=== PATIENT | female | born 1990 | race Caucasian/White ===

== ENCOUNTER 2017-05-31 18:32 | Emergency (ER) | payer BC ==
[2017-05-31 18:49] VITALS: BP 138/86
[2017-05-31] MEDS ORDERED: Ketorolac 60 MG/2 ML SDV IM ONE (19:05)
[2017-05-31] MEDS ORDERED: Acetaminophen/HYDROcodone 325-10 MG Tab PO PRN (19:05)
--- NOTE | 2017-05-31 19:05 | EDM.PDOC ---
ED HPI GENERAL MEDICAL PROBLEM - General Chief Complaint: Genitourinary Problem Stated Complaint: UTI Time Seen by Provider: 05/31/17 18:50 Source of Information: Reports: Patient History Limitations: Reports: No Limitations - History of Present Illness INITIAL COMMENTS - FREE TEXT/NARRATIVE: 26 YO WF presents to ER complaining of 4 hours of dysuria with lower abdominal and associated urinary frequency and urgency. Pt reports past history of UTI's and states these symptoms are similar. Pt denies any fever/chills or vomiting but states she does feel nauseated. Onset: Today Duration: Day(s): (1) Location: Reports: Abdomen Quality: Reports: Pressure Severity: Mild Improves with: Reports: None Worsens with: Reports: None Associated Symptoms: Reports: No Other Symptoms Treatments DIRECTOR OF STRATEGY & MOBILE: Reports: Other Medication(s) Bladder Pain Score (Numeric/FACES): 8 - Related Data Allergies Allergy/AdvReac Type Severity Reaction Status Date / Time phenazopyridine Allergy Other Verified 05/31/17 18:51 [From Pyridium] Sulfa (Sulfonamide Allergy Cannot Verified 03/22/15 20:21 MDT Antibiotics) Remember Home Meds: Home Meds Cephalexin [Keflex] 500 mg PO Q6HR #40 cap 05/31/17 [Rx] diphenhydrAMINE HCl [Benadryl] 25 mg PO TID PRN 05/31/17 [History] Past Medical History Other Respiratory History: seasonal alleriges Social & Family History - Tobacco Use Smoking Status *Q: Never Smoker ED ROS GENERAL - Review of Systems Review Of Systems: See Below Constitutional: Reports: No Symptoms HEENT: Reports: No Symptoms Respiratory: Reports: No Symptoms Cardiovascular: Reports: No Symptoms Endocrine: Reports: No Symptoms GI/Abdominal: Reports: Nausea : Reports: Dysuria, Frequency, Pain, Urgency Musculoskeletal: Reports: No Symptoms Skin: Reports: No Symptoms Neurological: Reports: No Symptoms Psychiatric: Reports: No Symptoms Hematologic/Lymphatic: Reports: No Symptoms Immunologic: Reports: No Symptoms ED EXAM, RENAL/ - Physical Exam Exam: See Below Exam Limited By: No Limitations General Appearance: Alert, WD/WN, No Apparent Distress Neck: Normal Inspection, Supple, Non-Tender, Full Range of Motion Respiratory/Chest: No Respiratory Distress, Lungs Clear, Normal Breath Sounds, No Accessory Muscle Use, Chest Non-Tender Cardiovascular: Normal Peripheral Pulses, Regular Rate, Rhythm, No Edema, No Gallop, No JVD, No Murmur, No Rub GI/Abdominal: Normal Bowel Sounds, Soft, Non-Tender, No Organomegaly, No Distention, No Abnormal Bruit, No Mass Back Exam: Normal Inspection, Full Range of Motion, NT Extremities: Normal Inspection, Normal Range of Motion, Non-Tender, Normal Capillary Refill, No Pedal Edema Neurological: Alert, Oriented, CN II-XII Intact, Normal Cognition, Normal Gait, Normal Reflexes, No Motor/Sensory Deficits Psychiatric: Normal Affect, Normal Mood Skin Exam: Warm, Dry, Intact, Normal Color, No Rash Lymphatic: No Adenopathy Course - Vital Signs Last Recorded V/S: Last Vital Signs Temp 36.1 C 05/31/17 18:47 Pulse 118 H 05/31/17 18:47 Resp 20 05/31/17 18:47 BP 138/86 05/31/17 18:47 Pulse Ox 98 05/31/17 18:47 - Orders/Labs/Meds Orders: Active Orders 24 hr Category Date Time Status Acetaminophen/HYDROcodone [[place] 325-10 MG] Med 05/31/17 19:05 Ordered 1 tab PO Q6H PRN Cephalexin [Keflex] Med 05/31/17 19:15 Ordered 500 mg PO Q6HR Ondansetron [Zofran ODT] Med 05/31/17 19:09 Ordered 4 mg PO Q6H PRN Medication Orders Hydrocodone Bitart/Acetaminophen ([place] 325-10 Mg) 1 tab PO Q6H PRN PRN Reason: Pain Cephalexin (Keflex) 500 mg PO Q6HR PERCY Stop: 06/01/17 11:01 Labs: Laboratory Tests 05/31/17 05/31/17 Range/Units 18:35 18:35 Specimen Type Urincc Urine Color Yellow (YELLOW) Urine Appearance Slightly cloudy H (CLEAR) Urine pH 7.0 (5.0-9.0) Ur Specific [place] 1.010 (1.005-1.030) Urine Protein Negative (NEGATIVE) mg/dL Urine Glucose (UA) Negative (NEGATIVE) mg/dL Urine Ketones Negative (NEGATIVE) mg/dL Urine Occult Blood Large H (NEGATIVE) Urine Nitrite Positive H (NEGATIVE) Urine Bilirubin Negative (NEGATIVE) Urine Urobilinogen 0.2 (0.2-1.0) E.U./dL Ur Leukocyte Esterase Moderate H (NEGATIVE) Urine RBC 20-30 H /HPF Urine WBC >100 H /HPF Ur Epithelial Cells Few /LPF Urine Bacteria Moderate H (NONE TO FEW) /HPF Urine HCG, Qual Negative (NEGATIVE) Meds: Medications Generic Name Dose Route Start Last Admin Trade Name Freq PRN Reason Stop Dose Admin Hydrocodone Bitart/Acetaminophen 1 tab 05/31/17 19:05 [place] 325-10 Mg PO Q6H PRN Pain Cephalexin 500 mg 05/31/17 19:15 Keflex PO 06/01/17 11:01 Q6HR PERCY Discontinued Medications Generic Name Dose Route Start Last Admin Trade Name Freq PRN Reason Stop Dose Admin Ketorolac Tromethamine 60 mg 05/31/17 19:05 Toradol IM 05/31/17 19:06 ONETIME ONE Departure - Departure Time of Disposition: 19:16 Disposition: Home, Self-Care 01 Condition: Good Clinical Impression: UTI, Urinary tract infectious disease - Discharge Information Prescriptions: Cephalexin [Keflex] 500 mg PO Q6HR #40 cap Instructions: Urinary Tract Infection, Adult, [id number] Referrals: Dina Nassar, STE[employer] POWER SUPERINTENDENT [Primary Care Provider] - Forms: ED Department Discharge - My Orders Last 24 Hours: My Active Orders 05/31/17 19:05 Acetaminophen/HYDROcodone [[place] 325-10 MG] 1 tab PO Q6H PRN 05/31/17 19:09 Ondansetron [Zofran ODT] 4 mg PO Q6H PRN 05/31/17 19:15 Cephalexin [Keflex] 500 mg PO Q6HR - Assessment/Plan Last 24 Hours: My Active Orders 05/31/17 19:05 Acetaminophen/HYDROcodone [[place] 325-10 MG] 1 tab PO Q6H PRN 05/31/17 19:09 Ondansetron [Zofran ODT] 4 mg PO Q6H PRN 05/31/17 19:15 Cephalexin [Keflex] 500 mg PO Q6HR Assessment:: 1. UTI Plan: 1. discharge home 2. keflex 500mg PO Q6 x 10 days 3. hydrocodone 10/325 PO Q6 4. zofran 4mg ODT Q6 PRN 5. follow up with PCP for further evaluation and treatment
[2017-05-31] MEDS ORDERED: Ondansetron 4 MG Tab.DIS PO PRN (19:09)
[2017-05-31] MEDS ORDERED: Cephalexin 250 MG Cap PO SCH (19:15)
== END 2017-05-31 19:30 | disposition home or self-care (01) ==
LOC: KA.ED 18:32
DX: N39.0 Urinary tract infection, site not specified (principal); Z88.2 Allergy status to sulfonamides
CPT/HCPCS: 81001; 81025; 87086; 96372; 99283; A9270; J1885; 87088; 87186

== ENCOUNTER 2019-04-18 03:02 | Emergency (ER) | payer BC ==
[2019-04-18] MEDS ORDERED: Sodium Chloride 0.9% 10 ML Syringe FLUSH PRN (03:32)
--- NOTE | 2019-04-18 03:44 | EDM.PDOC ---
ED HPI GENERAL MEDICAL PROBLEM - General Chief Complaint: General Stated Complaint: UTI symptoms Time Seen by Provider: 04/18/19 03:20 Source of Information: Reports: Patient History Limitations: Reports: No Limitations - History of Present Illness INITIAL COMMENTS - FREE TEXT/NARRATIVE: 28 YO WF IUP @27 weeks who presents to ER with 2 day history of urinary frequency and urgency. Pt was seen in clinic yesterday and had a urinalysis done which showed borderline UTI which was not treated. Culture was ordered and is pending at this time. Pt woke this am with lower abdominal pain, dysuria and frequency and became very uncomfortable prompting ER evaluation. Pt states she took azo and an oxycodone which she had at home which has improved her symptoms. Pt denies fever/chills, no nausea/vomiting, no severe back pain. Pt appears in NAD at this time. Onset Date: 04/17/19 Duration: Day(s): (2) Location: Reports: Abdomen Quality: Reports: Burning Severity: Mild Improves with: Reports: None Worsens with: Reports: Other (urination) Associated Symptoms: Denies: Fever/Chills, Nausea/Vomiting Treatments DINING ROOM BUSSER: Reports: Acetaminophen, Other (see below) (azo/oxycodone) Groin Pain Score (Numeric/FACES): 7 - Related Data Allergies Allergy/AdvReac Type Severity Reaction Status Date / Time phenazopyridine Allergy Other Verified 05/31/17 23:54 [From Pyridium] Sulfa (Sulfonamide Allergy Cannot Verified 05/31/17 23:54 Antibiotics) Remember Home Meds: Home Meds Cephalexin [Keflex] 500 mg PO Q6HR #40 cap 05/31/17 [Rx] diphenhydrAMINE HCl [Benadryl] 25 mg PO TID PRN 05/31/17 [History] Cephalexin [Keflex] 500 mg PO Q6HR #28 capsule 04/18/19 [Rx] Ondansetron [Zofran ODT] 4 mg PO Q6H PRN #6 tab.dis 04/18/19 [Rx] Past Medical History - Past Health History Medical/Surgical History: Denies Medical/Surgical History Other Respiratory History: seasonal alleriges RESIDENT PROGRAMS ASSISTANT History: Reports: Other RESIDENT PROGRAMS ASSISTANT History: G-2 P-2 ED ROS GENERAL - Review of Systems Review Of Systems: See Below Constitutional: Reports: No Symptoms HEENT: Reports: No Symptoms Respiratory: Reports: No Symptoms Cardiovascular: Reports: No Symptoms Endocrine: Reports: No Symptoms GI/Abdominal: Reports: No Symptoms : Reports: Dysuria, Frequency, Hematuria, Urgency Musculoskeletal: Reports: No Symptoms Skin: Reports: No Symptoms Neurological: Reports: No Symptoms Psychiatric: Reports: No Symptoms Hematologic/Lymphatic: Reports: No Symptoms Immunologic: Reports: No Symptoms ED EXAM, GENERAL - Physical Exam Exam: See Below Exam Limited By: No Limitations General Appearance: Alert, WD/WN, No Apparent Distress Nose: Normal Inspection, Normal Mucosa, No Blood Throat/Mouth: Normal Inspection, Normal Lips, Normal Teeth, Normal Gums, Normal Oropharynx, Normal Voice, No Airway Compromise Head: Atraumatic, Normocephalic Neck: Normal Inspection, Supple, Non-Tender, Full Range of Motion Respiratory/Chest: No Respiratory Distress, Lungs Clear, Normal Breath Sounds, No Accessory Muscle Use, Chest Non-Tender Cardiovascular: Normal Peripheral Pulses, Regular Rate, Rhythm, No Edema, No Gallop, No JVD, No Murmur, No Rub GI/Abdominal: Normal Bowel Sounds, Soft, No Organomegaly, No Distention, No Abnormal Bruit, No Mass, Pelvis Stable, Tender (suprpubic tenderness) Back Exam: Normal Inspection, Full Range of Motion, NT Extremities: Normal Inspection, Normal Range of Motion, Non-Tender, Normal Capillary Refill, No Pedal Edema Neurological: Alert, Oriented, CN II-XII Intact, Normal Cognition, Normal Gait, Normal Reflexes, No Motor/Sensory Deficits Psychiatric: Normal Affect, Normal Mood Skin Exam: Warm, Dry, Intact, Normal Color, No Rash Lymphatic: No Adenopathy Course - Vital Signs Last Recorded V/S: Last Vital Signs Temp 36.3 C 04/18/19 03:35 Pulse 100 04/18/19 03:35 Resp 22 H 04/18/19 03:35 BP 140/106 H 04/18/19 03:35 Pulse Ox 97 04/18/19 03:35 - Orders/Labs/Meds Orders: Active Orders 24 hr Category Date Time Status Peripheral IV Care [RC] . DIRECTED Care 04/18/19 03:32 Ordered CULTURE URINE [RM] Stat Lab 04/18/19 03:15 Received Acetaminophen/HYDROcodone [[place] 325-5 MG] Med 10/02/19 04:05 Ordered 6 tab PO Q6H PRN Sodium Chloride 0.9% [Saline Flush] Med 04/18/19 03:32 Ordered 10 ml FLUSH Q8HR PRN Peripheral IV Insertion Adult [OM.PC] Routine Oth 04/18/19 03:32 Ordered Medication Orders Hydrocodone Bitart/Acetaminophen ([place] 325-5 Mg) 6 tab PO Q6H PRN PRN Reason: Pain Sodium Chloride (Saline Flush) 10 ml FLUSH Q8HR PRN PRN Reason: keep vein open Last Admin: 04/18/19 03:55 Dose: 10 ml Labs: Laboratory Tests 04/18/19 04/18/19 04/18/19 Range/Units 03:15 03:25 03:25 WBC 12.99 H (5.00-10.00) 10^3/uL RBC 3.85 (3.80-5.50) 10^6/uL Hgb 11.5 L (12.0-16.0) g/dL Hct 32.5 L (37.0-47.0) % MCV 84.4 (82.0-92.0) fL MCH 29.9 (27.0-31.0) pg MCHC 35.4 (32.0-36.0) g/dL RDW 13.1 (11.5-14.5) % Plt Count 212 (150-400) 10^3/uL MPV 10.7 H (7.4-10.4) fL Immature Gran % (Auto) 0.2 (0.0-5.0) % Neut % (Auto) 72.2 H (50.0-70.0) % Lymph % (Auto) 18.4 L (20.0-40.0) % [place] % (Auto) 5.1 (2.0-8.0) % Eos % (Auto) 3.8 H (1.0-3.0) % Baso % (Auto) 0.3 (0.0-1.0) % Immature Gran # (Auto) 0.02 (0.00-0.50) 10^3/uL Neut # (Auto) 9.38 H (2.50-7.00) 10^3/uL Lymph # (Auto) 2.39 (1.00-4.00) 10^3/uL [place] # (Auto) 0.66 (0.10-0.80) 10^3/uL Eos # (Auto) 0.50 H (0.10-0.30) 10^3/uL Baso # (Auto) 0.04 (0.00-0.10) 10^3/uL Sodium 139 (136-145) mmol/L Potassium 3.5 (3.3-5.3) mmol/L Chloride 104 (98-115) mmol/L Carbon Dioxide 21.9 (21.0-32.0) mmol/L Anion Gap 16.6 H (5-15) mmol/L BUN 8 (6-25) mg/dL Creatinine 0.65 (0.51-1.17) mg/dL Est Cr Clr Drug Dosing 121.70 mL/min Estimated GFR (MDRD) > 60 mL/min Glucose 104 H (75 - 99) mg/dL Calcium 8.8 (8.7-10.3) mg/dL Specimen Type . Urine Color [place] H (YELLOW) Urine Appearance Slightly cloudy H (CLEAR) Urine pH 6.0 (5.0-9.0) Ur Specific [place] 1.015 (1.005-1.030) Urine Protein >=300 H (NEGATIVE) mg/dL Urine Glucose (UA) 100 H (NEGATIVE) mg/dL Urine Ketones 15 H (NEGATIVE) mg/dL Urine Occult Blood Large H (NEGATIVE) Urine Nitrite Positive H (NEGATIVE) Urine Bilirubin Small H (NEGATIVE) Urine Urobilinogen 4.0 H (0.2-1.0) E.U./dL Ur Leukocyte Esterase Large H (NEGATIVE) Urine RBC Semi-packed (0-5) /HPF Urine WBC Semi-packed (0-5) /HPF Ur Epithelial Cells Few /LPF Urine Bacteria Many H (NONE TO FEW) /HPF Meds: Medications Generic Name Dose Route Start Last Admin Trade Name Freq PRN Reason Stop Dose Admin Hydrocodone Bitart/Acetaminophen 6 tab 04/18/19 04:05 [place] 325-5 Mg PO Q6H PRN Pain Sodium Chloride 10 ml 04/18/19 03:32 04/18/19 03:55 Saline Flush FLUSH 10 ml Q8HR PRN Administration keep vein open Discontinued Medications Generic Name Dose Route Start Last Admin Trade Name Freq PRN Reason Stop Dose Admin Ceftriaxone Sodium 1 gm 04/18/19 04:03 Rocephin IVPUSH 04/18/19 04:04 ONETIME ONE Ondansetron HCl 4 mg 04/18/19 03:56 04/18/19 04:02 Zofran IVPUSH 04/18/19 03:57 4 mg ONETIME ONE Administration Departure - Departure Time of Disposition: 04:13 Disposition: Home, Self-Care 01 Condition: Good Clinical Impression: UTI (urinary tract infection) during Qualifiers: Trimester: third trimester Qualified Code(s): O23.43 - Unspecified infection of urinary tract in , third trimester - Discharge Information Prescriptions: Cephalexin [Keflex] 500 mg PO Q6HR #28 capsule Ondansetron [Zofran ODT] 4 mg PO Q6H PRN #6 tab.dis PRN Reason: Vomiting Instructions: and Urinary Tract Infection Referrals: Isabel Nassar STEAM TURBINE ASSEMBLER [Nurse Practitioner] - Forms: ED Department Discharge Additional Instructions: 1. discharge home 2. Rocephin 1g IV given in ER 3. start Keflex 500mg oral 4 times per day x 7 days- start 04/19/2019 4. hydrocodone 5/325 #6 take 1 every 6 hours as needed for pain 5. follow up with PCP in 48 hours for further evaluation and urine culture results 6. return to ER for worsening symptoms - My Orders Last 24 Hours: My Active Orders 04/18/19 03:15 CULTURE URINE [RM] Stat 04/18/19 03:32 Peripheral IV Care [RC] . DIRECTED Sodium Chloride 0.9% [Saline Flush] 10 ml FLUSH Q8HR PRN Peripheral IV Insertion Adult [OM.PC] Routine 04/18/19 04:05 Acetaminophen/HYDROcodone [[place] 325-5 MG] 6 tab PO Q6H PRN - Assessment/Plan Last 24 Hours: My Active Orders 04/18/19 03:15 CULTURE URINE [RM] Stat 04/18/19 03:32 Peripheral IV Care [RC] . DIRECTED Sodium Chloride 0.9% [Saline Flush] 10 ml FLUSH Q8HR PRN Peripheral IV Insertion Adult [OM.PC] Routine 04/18/19 04:05 Acetaminophen/HYDROcodone [[place] 325-5 MG] 6 tab PO Q6H PRN Assessment:: 1. UTI 2. Plan: 1. discharge home 2. Rocephin 1g IV given in ER 3. start Keflex 500mg oral 4 times per day x 7 days- start 04/19/2019 4. hydrocodone 5/325 #6 take 1 every 6 hours as needed for pain 5. follow up with PCP in 48 hours for further evaluation and urine culture results 6. return to ER for worsening symptoms
[2019-04-18 03:46] VITALS: BP 140/106; PULSE 100
[2019-04-18] MEDS ORDERED: Ondansetron 4 MG/2 ML SDV IVPUSH ONE (03:56)
[2019-04-18] MEDS ORDERED: cefTRIAXone 1 GM Vial IVPUSH ONE (04:03)
[2019-04-18] MEDS ORDERED: Acetaminophen/HYDROcodone 325-5 MG Tab PO PRN (04:05)
[2019-04-18 04:11] LABS: ANION GAP 16.6 mmol/L (5-15); CHLORIDE,CL 104 mmol/L (98-115); SODIUM,NA 139 mmol/L (136-145)
== END 2019-04-18 04:35 | disposition home or self-care (01) ==
LOC: KA.ED 03:02
DX: O23.43 Unspecified infection of urinary tract in pregnancy, third trimester (principal); Z79.899 Other long term (current) drug therapy; Z88.2 Allergy status to sulfonamides; Z88.8 Allergy status to other drugs, medicaments and biological substances; Z3A.28 28 weeks gestation of pregnancy
CPT/HCPCS: 80048; 81001; 85025; 87086; 87088; 96374; 96375; 99283; A9270; J0696; J2405

== ENCOUNTER 2022-10-16 09:15 | Emergency (ER) | payer BC ==
[2022-10-16 09:42] VITALS: BP 132/91; PULSE 100
[2022-10-16] MEDS ORDERED: Penicillin G Benzathine 1,200,000 Units/2 ML Syringe IM ONE (10:00)
== END 2022-10-16 10:15 | disposition home or self-care (01) ==
LOC: KA.ED 09:15
DX: J02.0 Streptococcal pharyngitis (principal); Z88.8 Allergy status to other drugs, medicaments and biological substances; Z88.2 Allergy status to sulfonamides
CPT/HCPCS: 87651-QW; 96372; 99283; J0561

== ENCOUNTER 2023-11-08 18:19 | Emergency (ER) | payer BC ==
[2023-11-08] MEDS: Lidocaine 1% 5 ML VIAL INJECT ONE (18:52)
[2023-11-08] MEDS: Bacitracin/Neomycin/Polymyxin B Oint 0.9 GM U/D Packet TOP ONE (19:11)
[2023-11-08] MEDS: Bacitracin/Neomycin/Polymyxin B Oint 0.9 GM U/D Packet ONE (19:11)
[2023-11-09 03:02] VITALS: BP 142/92; PULSE 89
== END 2023-11-08 19:25 | disposition home or self-care (01) ==
LOC: KA.ED 18:19
DX: S61.012A Laceration without foreign body of left thumb without damage to nail, initial encounter (principal); Z88.2 Allergy status to sulfonamides; Z88.8 Allergy status to other drugs, medicaments and biological substances; Z79.899 Other long term (current) drug therapy; W26.0XXA Contact with knife, initial encounter; Y93.89 Activity, other specified; Y99.0 Civilian activity done for income or pay; Y92.89 Other specified places as the place of occurrence of the external cause
CPT/HCPCS: 12001; 99282; 99283; J3490

== ENCOUNTER 2024-02-25 15:23 | Emergency (ER) | payer BC ==
[2024-02-25] MEDS: Ibuprofen 400 MG Tab PO ONE (16:11)
[2024-02-25] MEDS: Diazepam 5 MG Tab PO ONE (16:11)
[2024-02-25 16:27] VITALS: BP 129/84; PULSE 89
== END 2024-02-25 16:31 | disposition home or self-care (01) ==
LOC: KA.ED 15:23
DX: S19.9XXA Unspecified injury of neck, initial encounter (principal); E66.9 Obesity, unspecified; Z88.2 Allergy status to sulfonamides; Z88.8 Allergy status to other drugs, medicaments and biological substances; Z79.899 Other long term (current) drug therapy; Z68.31 Body mass index [BMI] 31.0-31.9, adult; W09.8XXA Fall on or from other playground equipment, initial encounter; Y93.44 Activity, trampolining
CPT/HCPCS: 72040; 99283; A9270-GY

== ENCOUNTER 2024-05-17 23:57 | Emergency (ER) | payer BC ==
[2024-05-18] MEDS: Sodium Chloride 0.9% 1,000 ML IV ONE (00:24)
[2024-05-18] MEDS: Ondansetron 4 MG/2 ML SDV IVPUSH ONE (00:24)
[2024-05-18] MEDS: Ketorolac 30 MG/ML SDV IVPUSH ONE (00:26)
[2024-05-18] MEDS: diphenhydrAMINE 50 MG/ML SDV IVPUSH ONE (00:28)
[2024-05-18 01:41] VITALS: BP 123/80; PULSE 107
== END 2024-05-18 01:38 | disposition home or self-care (01) ==
LOC: KA.ED 23:57
DX: R51.9 Headache, unspecified (principal); E66.9 Obesity, unspecified; Z68.31 Body mass index [BMI] 31.0-31.9, adult; Z88.2 Allergy status to sulfonamides; Z88.8 Allergy status to other drugs, medicaments and biological substances; Z79.51 Long term (current) use of inhaled steroids; Z79.899 Other long term (current) drug therapy
CPT/HCPCS: 70450; 96374; 96375; 99284-25; J1200; J1885; J2405; J7030

== ENCOUNTER 2025-03-29 21:05 | Emergency (ER) | payer BC ==
[2025-03-29 21:26] VITALS: BP 126/82; PULSE 87
== END 2025-03-29 22:35 | disposition home or self-care (01) ==
LOC: KA.ED 21:05
DX: J02.9 Acute pharyngitis, unspecified (principal); E66.9 Obesity, unspecified; Z79.899 Other long term (current) drug therapy; Z91.048 Other nonmedicinal substance allergy status; Z88.2 Allergy status to sulfonamides; Z88.8 Allergy status to other drugs, medicaments and biological substances; Z68.31 Body mass index [BMI] 31.0-31.9, adult
CPT/HCPCS: 87651; 99283; A9270-GY